=== PATIENT | male | born 1995 | race African-American/Black ===

== ENCOUNTER 2016-12-24 15:10 | Emergency (ER) | payer MEDICAID ==
[2016-12-24 15:12] VITALS: BP 134/72
--- NOTE | 2016-12-24 15:29 | ED.ADGEN ---
Past History Past Medical History: No Pertinent History Adult General Chief Complaint Chief Complaint swelling HPI HPI Patient is a 21 year old male who presents with swelling of his face, itchy, rash. It started after patient ate some eggs but he was eating near fish products. He does not have a known fish allergy but states he has family members who are allergic to fish. He denies any shortness of breath, took 50 mg by mouth Benadryl and states his symptoms have not worsened since. Review of Systems Review of Systems Constitutional: Denies fever or chills [] Eyes: Denies change in visual acuity, redness, or eye pain [] HENT: Denies nasal congestion or sore throat [] Respiratory: Denies cough or shortness of breath [] Cardiovascular: No additional information not addressed in HPI [] GI: Denies abdominal pain, nausea, vomiting, bloody stools or diarrhea [] : Denies dysuria or hematuria [] Musculoskeletal: Denies back pain or joint pain [] Integument: per history of present illness Neurologic: Denies headache, focal weakness or sensory changes [] Current Medications Current Medications Current Medications Medications (Trade) Dose Ordered Sig/Vahid Start Time Stop Time Status Last Admin Dose Admin Famotidine (Pepcid) 20 mg 1X ONCE 12/24/16 15:45 12/24/16 15:46 DC 12/24/16 16:01 20 MG Prednisone (Prednisone) 60 mg 1X ONCE 12/24/16 15:45 12/24/16 15:46 DC 12/24/16 16:01 60 MG Allergies Allergies Allergies Coded Allergies Type Severity Reaction Last Updated Verified No Known Drug Allergies 12/24/16 No Physical Exam Physical Exam Constitutional: Well developed, well nourished, no acute distress, non-toxic appearance. [] HENT: Normocephalic, atraumatic, bilateral external ears normal, oropharynx moist, no oral exudates, nose normal. [] Eyes: PERRLA, EOMI, conjunctiva normal, no discharge. [] Neck: Normal range of motion, no tenderness, supple, no stridor. [] Cardiovascular:Heart rate regular rhythm, no murmur [] Lungs & Thorax: Bilateral breath sounds clear to auscultation [] Abdomen: Bowel sounds normal, soft, no tenderness, no masses, no pulsatile masses. [] Skin: Warm, dry,mild swelling of the periorbital area with urticaria on face. Back: No tenderness, no CVA tenderness. [] Extremities: No tenderness, no cyanosis, no clubbing, ROM intact, no edema. [] Neurologic: Alert and oriented X 3, normal motor function, normal sensory function, no focal deficits noted. [] Psychologic: Affect normal, judgement normal, mood normal. [] Current Patient Data Vital Signs Vital Signs Date Time Temp Pulse Resp B/P Pulse Ox O2 Delivery O2 Flow Rate FiO2 12/24/16 15:12 98.2 62 17 99 Room Air EKG EKG [] Radiology/Procedures Radiology/Procedures [] Course & Med Decision Making Course & Med Decision Making Pertinent Labs and Imaging studies reviewed. (See chart for details) [] Patient was given 60 mg by mouth prednisone and 20 mg by mouth Pepcid. We'll monitor for a period of time. Symptoms improved, discharged with 4 more days of steroids, Pepcid, return precautions. Final Impression Final Impression Allergic reaction Problems: Dragon Disclaimer Dragon Disclaimer This electronic medical record was generated, in whole or in part, using a voice recognition dictation system. AIXA CHATMAN MD Dec 24, 2016 15:29
[2016-12-24] MEDS ORDERED: PREDNISONE 20 MG TABLET PO ONE (15:45)
[2016-12-24] MEDS ORDERED: FAMOTIDINE 20 MG TABLET PO ONE (15:45)
[2016-12-24] MEDS ORDERED: PRED50TA PO (16:26)
[2016-12-24] MEDS ORDERED: FAMO-63 PO (16:26)
== END 2016-12-24 16:30 | disposition home or self-care (01) ==
LOC: ER 15:30
DX: T78.1XXA Other adverse food reactions, not elsewhere classified, initial encounter (principal); X58.XXXA Exposure to other specified factors, initial encounter
CPT/HCPCS: 99283; J7512